=== PATIENT | male | born 1950 | race Caucasian/White ===

== ENCOUNTER 2025-01-27 12:07 | Emergency (ER) | payer OTHER, MEDICARE ==
[~2025-01-27] VITALS: Ht 172.7 cm; Wt 77.1 kg
== END 2025-01-27 16:24 | disposition home or self-care (01) ==
LOC: ER 12:07
DX: M79.662 Pain in left lower leg (principal); Z95.0 Presence of cardiac pacemaker; Z98.890 Other specified postprocedural states; Z88.5 Allergy status to narcotic agent; Z59.89 Other problems related to housing and economic circumstances
CPT/HCPCS: 93971; 99283-25